=== PATIENT | female | born 1955 | race Caucasian/White ===

== ENCOUNTER → 2016-07-18 | Outpatient (CLI) | payer OTHER ==
--- NOTE | 2016-07-18 11:11 | MM ---
Reason for exam: follow-up at short interval from prior study. Last mammogram was performed 11 months ago. History: Patient is postmenopausal and has history of breast cancer at age 49. Retro-pectoral silicone gel implants, September 2006. Mastectomy of the right breast, November 2004. Malignant ultrasound-guided core biopsy of the right breast, October 20, 2004. Chemotherapy, 2004. Took hormonal contraceptives for 3 years beginning at age 20. Took tamoxifen for 5 years beginning at age 50. Physical Findings: Nurse did not find any significant physical abnormalities on exam. MG 3D Diag Mammo Imp W/Cad LT CC, MLO, and ID view(s) were taken of the left breast. Prior study comparison: August 24, 2015, left breast MG diag mamm implant LT w CAD. October 18, 2010, left diagnostic mammogram w/CAD. There are scattered fibroglandular densities. There is no discrete abnormality. No significant new findings when compared with previous films. These results were verbally communicated with the patient and result sheet given to the patient on 07/18/16. ASSESSMENT: Benign, BI-RAD 2 RECOMMENDATION: Follow-up diagnostic mammogram of the left breast in 1 year.
== END | disposition home or self-care (01) ==
LOC: RADMAMWWP 10:10
PROVIDERS: ATTEND Family Medicine
DX: R92.8 Other abnormal and inconclusive findings on diagnostic imaging of breast (principal)
CPT/HCPCS: G0206; G0279

== ENCOUNTER → 2017-09-12 | Outpatient (CLI) | payer OTHER ==
--- NOTE | 2017-09-12 12:00 | MM ---
Reason for exam: additional evaluation requested from prior study. Last mammogram was performed 1 year and 2 months ago. History: Patient is postmenopausal and has history of breast cancer at age 49. Retro-pectoral silicone gel implants, September 2006. Mastectomy of the right breast, November 2004. Malignant ultrasound-guided core biopsy of the right breast, October 20, 2004. Chemotherapy, 2004. Took hormonal contraceptives for 3 years beginning at age 20. Took tamoxifen for 5 years beginning at age 50. Physical Findings: Nurse did not find any significant physical abnormalities on exam. MG 3D Diag Mammo Imp W/Cad LT CC, MLO, and LM view(s) were taken of the left breast. Prior study comparison: July 18, 2016, left breast MG 3d diag mammo imp w/cad LT. August 24, 2015, left breast MG diag mamm implant LT w CAD. There are scattered fibroglandular densities. No suspicious abnormality. These results were verbally communicated with the patient and result sheet given to the patient on 09/12/17. ASSESSMENT: Negative, BI-RAD 1 RECOMMENDATION: Follow-up diagnostic mammogram of the left breast in 1 year.
== END | disposition home or self-care (01) ==
LOC: RADMAMWWP 09:35
PROVIDERS: ATTEND Family Medicine
DX: Z08 Encounter for follow-up examination after completed treatment for malignant neoplasm (principal); Z85.3 Personal history of malignant neoplasm of breast
CPT/HCPCS: 77061; 77065

== ENCOUNTER 2017-11-08 07:03 | Day surgery (SDC) | payer OTHER ==
[2017-11-06 13:35] VITALS: BMI 28.5
[~2017-11-08 07:03] MED LIST: LACTATED RINGERS 1,000 ML IV SCH
[2017-11-08 07:24] VITALS: RESP 18; TEMP 979
[2017-11-08] MEDS ORDERED: LIDOCAINE 1% 20 ML VIAL (10MG/ML) FOR IV START INTRADERMA ONE (07:25)
[2017-11-08 07:36] LABS: Glucose,Whole Blood 128 mg/dL (75-99)
[2017-11-08] MEDS ORDERED: MIDAZOLAM 2 MG/2 ML VIAL ONE (07:54)
[2017-11-08] MEDS ORDERED: PROPOFOL 10 MG/ML 20 ML VIAL IV ONE (07:54)
[2017-11-08] MEDS ORDERED: fentaNYL (PF) 50 MCG/ML 2 ML AMP ONE (07:54)
[2017-11-08 08:31] VITALS: BP 135/79; PULSE 72
--- NOTE | 2017-11-08 11:23 | P.PCN ---
Date of Procedure: 11/08/17 Procedure(s) Performed: BRIEF HISTORY: Patient is a 62-year-old pleasant white female scheduled for an elective colonoscopy as a part of evaluation of intermittent episodes of lower abdominal pain associated with cramping change in bowel habits for the last 2 years duration. She has these episodes once every 3-4 months and last for about 4 days and usually results. Possibly of IBS versus acute recurrent sigmoid diverticulitis being considered. She is hence scheduled for colonoscopy to evaluate further. PROCEDURE PERFORMED: Colonoscopy. PREOPERATIVE DIAGNOSIS: Intermittent episodes of lower abdominal pain and change in bowel habits. IV sedation per Anesthesia. PROCEDURE: After informed consent was obtained, the patient, was brought into the endoscopy unit. IV sedation was administered by Anesthesia under continuous monitoring. Digital rectal examination was normal. Initially the Olympus CF- 160 flexible video colonoscope was then inserted in the rectum, gradually advanced into the cecum without any difficulty. Careful examination was performed as the scope was gradually being withdrawn. Ileocecal valve and the appendiceal orifice were visualized and appeared normal. Prep was excellent. Mucosa of the cecum, ascending colon, transverse colon, descending colon, sigmoid colon, and rectum appeared normal. Retroflexion was performed in the rectum and no lesions were seen. Scattered sigmoid diverticula seen. The patient tolerated the procedure well. IMPRESSION: Scattered sigmoid diverticulosis Small internal hemorrhoids No evidence of colorectal neoplasia RECOMMENDATIONS: Findings of this examination were discussed with the patient as well as a family. Her symptoms are suggestive of possible irritable bowel syndrome and hence she is been prescribed antispasmodics as needed. She'll be seen in office in 3 months. She will continue with a high-fiber diet and fiber supplements on a regular basis
== END 2017-11-08 08:41 | disposition home or self-care (01) ==
LOC: ORWHC2ENDO 07:03
PROVIDERS: ATTEND Internal Medicine Gastroenterology
DX: K57.30 Diverticulosis of large intestine without perforation or abscess without bleeding (principal); K64.8 Other hemorrhoids; E11.9 Type 2 diabetes mellitus without complications; K21.9 Gastro-esophageal reflux disease without esophagitis; Z79.84 Long term (current) use of oral hypoglycemic drugs; Z79.82 Long term (current) use of aspirin; Z79.899 Other long term (current) drug therapy
CPT/HCPCS: 45378; J2250; J3010; J2704

== ENCOUNTER → 2018-08-01 | Outpatient (CLI) | payer OTHER ==
--- NOTE | 2018-08-01 19:04 | ECHOF ---
Referral Reason:R06.09 Dyspnea, R00.2 Palpitations MEASUREMENTS -------- HEIGHT: 162.6 cm WEIGHT: 72.6 kg BP: RVIDd: 2.1 cm (< 3.3) IVSd: 1.1 cm (0.6 - 1.1) LVIDd: 3.4 cm (3.9 - 5.3) LVPWd: 1.1 cm (0.6 - 1.1) IVSs: 1.5 cm LVIDs: 1.9 cm LVPWs: 1.5 cm LAESV Index (A-L): 17.68 ml/m Ao Diam: 2.8 cm (2.0 - 3.7) AV Cusp: 1.9 cm (1.5 - 2.6) LA Diam: 3.0 cm (2.7 - 3.8) MV EXCURSION: 14.577 mm (> 18.000) MV EF SLOPE: 70 mm/s (70 - 150) EPSS: 0.5 cm MV E Kishore: 0.69 m/s MV DecT: 257 ms MV A Kishore: 0.82 m/s MV E/A Ratio: 0.84 RAP: 5.00 mmHg RVSP: 12.51 mmHg FINDINGS -------- Sinus rhythm. This was a technically good study. The left ventricular size is normal. There is borderline concentric left ventricular hypertrophy. Overall left ventricular systolic function is normal with, an EF between 55 - 60 %. The right ventricle is normal in size and function. Normal LA size by volume 22+/-6 ml/m2. The right atrium is normal in size. Aortic valve is trileaflet and is mildly thickened. There is no evidence of aortic regurgitation. There is no evidence of aortic stenosis. Mild mitral annular calcification present. Mild mitral regurgitation is present. Trace tricuspid regurgitation present. Right ventricular systolic pressure is normal at < 35 mmHg. There is no evidence of pulmonary hypertension. Trace/mild (physiologic) pulmonic regurgitation. The aortic root size is normal. Normal inferior vena cava with normal inspiratory collapse consistent with estimated right atrial pre ssure of 5 mmHg. There is no pericardial effusion. CONCLUSIONS -------- 1. Sinus rhythm. 2. This was a technically good study. 3. The left ventricular size is normal. 4. There is borderline concentric left ventricular hypertrophy. 5. Overall left ventricular systolic function is normal with, an EF between 55 - 60 %. 6. Normal LA size by volume 22+/-6 ml/m2. 7. Aortic valve is trileaflet and is mildly thickened. 8. Mild mitral annular calcification present. 9. Mild mitral regurgitation is present. 10. Trace tricuspid regurgitation present. 11. Right ventricular systolic pressure is normal at < 35 mmHg. 12. There is no evidence of pulmonary hypertension. 13. Trace/mild (physiologic) pulmonic regurgitation. 14. The aortic root size is normal. 15. There is no pericardial effusion. HYDRAULIC RIVETER: Rodney Hector RDCS
== END | disposition home or self-care (01) ==
LOC: RADECHMAIN 16:22
PROVIDERS: ATTEND Family Medicine
DX: I05.1 Rheumatic mitral insufficiency (principal); I09.89 Other specified rheumatic heart diseases; I06.8 Other rheumatic aortic valve diseases
CPT/HCPCS: 93306

== ENCOUNTER → 2020-06-07 | Outpatient (CLI) | payer OTHER ==
--- NOTE | 2020-06-07 09:46 | MM ---
Reason for exam: additional evaluation requested from prior study. Last mammogram was performed 2 years and 9 months ago. History: Patient is postmenopausal and has history of breast cancer at age 49. Retro-pectoral silicone gel implants, September 2006. Mastectomy of the right breast, November 2004. Malignant ultrasound-guided core biopsy of the right breast, October 20, 2004. Chemotherapy, 2004. Took hormonal contraceptives for 3 years beginning at age 20. Took tamoxifen for 5 years beginning at age 50. Physical Findings: Nurse did not find any significant physical abnormalities on exam. MG 3D Diag Mammo Imp W/Cad LT CC, MLO, and ID view(s) were taken of the left breast. Prior study comparison: September 12, 2017, left breast MG 3d diag mammo imp w/cad LT. July 18, 2016, left breast MG 3d diag mammo imp w/cad LT. There are scattered fibroglandular densities. There is no discrete abnormality. Implant is intact. No significant new findings when compared with previous films. These results were verbally communicated with the patient and result sheet given to the patient on 06/07/20. ASSESSMENT: Benign, BI-RAD 2 RECOMMENDATION: Follow-up diagnostic mammogram of the left breast in 1 year.
== END | disposition home or self-care (01) ==
LOC: RADMAMWWP 07:48
PROVIDERS: ATTEND Family Medicine
DX: Z08 Encounter for follow-up examination after completed treatment for malignant neoplasm (principal); Z85.3 Personal history of malignant neoplasm of breast
CPT/HCPCS: 77061; 77065

== ENCOUNTER → 2023-06-20 | Outpatient (CLI) | payer MEDICARE ==
--- NOTE | 2023-06-21 10:28 | MM ---
Reason for Exam: Screening (asymptomatic). Last screening mammogram was performed 12 month(s) ago. Patient History: Menarche at age 17. First Full-Term at age 24. Left ovary removed at age 50. Right ovary removed at age 50. Hysterectomy at age 50. Postmenopausal. Breast cancer, right, age 49. Hormonal Contraceptives for 3 years from age 20 until age 23. Tamoxifen, starting at age 50 for 5 years. 11/2004, Mastectomy on the Right side. 10/20/2004, Malignant Ultrasound-Guided Core Biopsy on the right side. 2004, Chemotherapy. 09/2006, Implant(s). Prior Study Comparison: 09/12/2017 Left Diagnostic Mammogram, [facility]. 06/07/2020 Left Diagnostic Mammogram, [facility]. 06/19/2022 Left MG 3D diag mammo imp w/cad LT, [facility]. Tissue Density: Left: There are scattered fibroglandular densities. Findings: There is no suspicious group of microcalcifications or new suspicious mass in the left breast. Implant is intact. Overall Assessment: Benign, BI-RAD 2 Management: Screening Mammogram of the left breast in 1 year. . Patient should continue monthly self-breast exams. A clinical breast exam by your physician is recommended on an annual basis. This exam should not preclude additional follow-up of suspicious palpable abnormalities. Note on Helen scores and lifetime risk: 1. A Helen score greater than 3% is considered moderate risk. If this is the case, consider specialist referral to assess eligibility for a risk reducing agent. 2. If overall lifetime risk for the development of breast cancer is 20% or higher, the patient may qualify for future screening with alternating mammogram and breast MRI. Electronically signed and approved by: Joel Hamilton M.D. Radiologis
== END | disposition home or self-care (01) ==
LOC: RADMAMWWP 05-31 11:19
PROVIDERS: ATTEND Internal Medicine
DX: Z12.31 Encounter for screening mammogram for malignant neoplasm of breast (principal)
CPT/HCPCS: 77067

== ENCOUNTER → 2024-08-07 | Outpatient (CLI) | payer MEDICARE ==
--- NOTE | 2024-08-09 18:08 | BD ---
EXAMINATION TYPE: Axial Bone Density DATE OF EXAM: 08/07/2024 CLINICAL HISTORY: 69 years old Female. ICD-10 CODE: N95.1 MENOPAUSAL AND M85.88 , Additional Histor y: Height: 64 Weight: 142 FRAX RISK QUESTIONS: Family History (Parent hip fracture): no History of Fracture in Adulthood: no Secondary Osteoporosis: no RISK FACTORS HISTORY OF: History of Wrist Fracture: yes When: child Surgery to Spine/Hip(right/left)/Wrist (right/left): no MEDICATIONS: Thyroid Medications: no Osteoporosis Medications: no EXAM MEASUREMENTS: Bone mineral densitometry was performed using the [employer] System. Bone mineral density as measured about the Lumbar spine is: ----- L1-L4(G/cm2): 0.931 T Score Values are as follows: ----- L1: -1.6 ----- L2: -2.8 ----- L3: -2.2 ----- L4: -1.8 ----- L1-L4: -2.1 Z Score Values are as follows: ----- L1: 0.0 ----- L2: -1.1 ----- L3: -0.6 ----- L4: -0.1 ----- L1-L4: -0.4 Bone mineral density has: Increased 1.1% since study of: 06/19/2022 Bone mineral density about the R hip (g/cm2): 0.921 Bone mineral density about the L hip (g/cm2): 0.901 T Score values are as follows: -----R Neck: -0.8 -----L Neck: -0.5 -----R Total: -0.7 -----L Total: -0.8 Z Score values are as follows: -----R Neck: 0.8 -----L Neck: 1.1 -----R Total: 0.7 -----L Total: 0.5 Bone mineral density has: Decreased -2.9% since study of: 06/19/2022 FRAX%s: The graph provided illustrates a 8.2% chance for a major osteoporotic fx and a 0.6% chance fo r the hips probability for fx in 10 years time. IMPRESSION: Osteopenia (T Score between -2.5 and -1). There is slightly increased risk of fracture and the patient may be considered for treatment. Re-Screen 2-5 years. NOTE: T-SCORE=SD OF THE YOUNG ADULT MEAN. [facility], , 08/09/2024 6:05 PM
--- NOTE | 2024-08-10 07:23 | MM ---
Reason for Exam: Screening (asymptomatic). Last mammogram was performed 1 year(s) and 1 month(s) ago. Patient History: Menarche at age 17. First Full-Term at age 24. Left ovary removed at age 50. Right ovary removed at age 50. Hysterectomy at age 50. Postmenopausal. Breast cancer, right, age 49. Hormonal Contraceptives for 3 years from age 20 until age 23. Tamoxifen, starting at age 50 for 5 years. 11/2004, Mastectomy on the Right side. 10/20/2004, Malignant Ultrasound-Guided Core Biopsy on the right side. 2004, Chemotherapy. 09/2006, Implant(s). Prior Study Comparison: 06/07/2020 Left Diagnostic Mammogram, [facility]. 06/19/2022 Left MG 3D diag mammo imp w/cad LT, [facility]. 06/20/2023 Left MG 3D scr romario unilateral w/cad., [facility]. Tissue Density: Left: There are scattered areas of fibroglandular density. Findings: There is no suspicious group of microcalcifications or new suspicious mass in either breast. Left breast implant is intact. Overall Assessment: Benign, BI-RAD 2 Management: Screening Mammogram of the left breast in 1 year. . Patient should continue monthly self-breast exams. A clinical breast exam by your physician is recommended on an annual basis. This exam should not preclude additional follow-up of suspicious palpable abnormalities. Note on Helen scores and lifetime risk: 1. A Helen score greater than 3% is considered moderate risk. If this is the case, consider specialist referral to assess eligibility for a risk reducing agent. 2. If overall lifetime risk for the development of breast cancer is 20% or higher, the patient may qualify for future screening with alternating mammogram and breast MRI. [facility], , 08/10/2024 7:20 AM. Electronically signed and approved by: Joel Hamilton M.D. Radiologis
== END | disposition home or self-care (01) ==
LOC: RADBDWWP 15:10
PROVIDERS: ATTEND Internal Medicine
DX: Z12.31 Encounter for screening mammogram for malignant neoplasm of breast (principal); M85.88 Other specified disorders of bone density and structure, other site; R92.322 Mammographic fibroglandular density, left breast; Z78.0 Asymptomatic menopausal state; Z85.3 Personal history of malignant neoplasm of breast; Z90.11 Acquired absence of right breast and nipple; Z92.0 Personal history of contraception; Z98.82 Breast implant status
CPT/HCPCS: 77067; 77080